=== PATIENT | female | born 1960 | race Caucasian/White ===

== ENCOUNTER 2016-04-12 23:16 | Inpatient (IN) | payer MEDICARE, MEDICAID ==
[2016-04-13 00:14] LABS: INR 1.13
[2016-04-13 00:23] LABS: ALB/GLOB RATIO 1.3 (>1.0); ALBUMIN 3.3 gm/dL (3.5-5.7); CALCIUM 8.5 mg/dL (8.6-10.3)
[2016-04-13 00:24] LABS: ABSOLUTE NEUTROPHIL COUNT 6.2 K/mm3 (1.8-7.7); BASO % 0.3 % (0.2-1.0); EOS # 0.1 (0.0-0.5); EOS % 0.7 % (0.9-2.9); HEMATOCRIT 33.6 % (37.0-47.0); HEMOGLOBIN 10.4 gm/l (12.0-16.0); IMM NEUT # 0.1 K/mm3 (0-0.2); IMM NEUT% 0.7 % (0-1); LYMPH # 0.4 (1.0-4.8); LYMPH % 5.8 % (15-45); MEAN CELL VOLUME 84.8 fl (81.0-99.0); MEAN CORPUSCULAR HEMOGLOBIN 26.3 pg (27.0-31.0); MONO # 0.7 (0.0-0.8); MONO % 9.1 % (4-12); NEUT % 83.4 % (43-75); RED CELL DISTRIBUTION WIDTH 16.8 % (11.5-14.5)
[2016-04-13] MEDS ORDERED: LACTATED RINGERS 1,000 ML ONE ×2 (00:35→03:30)
[2016-04-13 00:37] LABS: PLATELET COUNT 36 K/mm3 (130-400); PLATELET ESTIMATE DECREASED (NORMAL)
[2016-04-13 01:46] LABS: PH,URINE 6.5 (5.0-8.0); SPECIFIC GRAVITY 1.015 (1.001-1.030); URINE APPEARANCE SL CLOUDY; URINE BILIRUBIN NEGATIVE (NEGATIVE); URINE BLOOD NEGATIVE (NEGATIVE); URINE COLOR YELLOW; URINE GLUCOSE (UA) NEGATIVE (NEGATIVE); URINE LEUKOCYTE ESTERASE TRACE (NEGATIVE); URINE NITRITE NEGATIVE (NEGATIVE); URINE PROTEIN NEGATIVE (NEGATIVE); URINE UROBILINOGEN 8 mg/dL (0-1 mg/dl)
[2016-04-13 01:55] LABS: URINE BACTERIA 1+; URINE RBC 0-1 /hpf; URINE WBC 0-1 /hpf
[2016-04-13 01:58] LABS: AMPHETAMINES/METHAMPHETAMINES NEGATIVE (NEGATIVE); COCAINE NEGATIVE (NEGATIVE); MARIJUANA NEGATIVE (NEGATIVE); METHADONE NEGATIVE (NEGATIVE); OPIATES NEGATIVE (NEGATIVE); TRICYCLIC ANTIDEPRESSANTS NEGATIVE (NEGATIVE)
[2016-04-13] MEDS ORDERED: BLISTEX LIPSTICK 1 EACH TP PRN (03:17)
[2016-04-13] MEDS ORDERED: SODIUM CHLORIDE 0.9% 100 ML IV PRN (03:17)
[2016-04-13] MEDS ORDERED: MENTHOL/CETYLPYRD 1 EACH LOZENGE PO PRN (03:17)
[2016-04-13] MEDS ORDERED: BISACODYL 10 MG SUP PR PRN (03:17)
[2016-04-13] MEDS ORDERED: BISACODYL 5 MG TABLET.EC PO PRN (03:17)
[2016-04-13] MEDS ORDERED: MAGNESIUM HYDROXIDE 30 ML UDCUP PO PRN (03:17)
[2016-04-13] MEDS ORDERED: ALBUTEROL NEB 2.5 MG/3 ML VIAL.NEB NEB PRN (03:20)
[2016-04-13] MEDS ORDERED: HYDROMORPHONE HCL 1 MG/ML SYRINGE IV PRN (03:20)
[2016-04-13] MEDS ORDERED: ONDANSETRON 4 MG/2ML 2 ML VIAL IV PRN (03:20)
[2016-04-13] MEDS ORDERED: OXYCODONE HCL 5 MG TABLET ONE (03:23)
[2016-04-13] MEDS ORDERED: CEFTRIAXONE 1 GRAM DUPLEX 50 ML IV ONE (03:28)
[2016-04-13] MEDS ORDERED: AZITHROMYCIN 500 MG VIAL ONE (03:35)
[2016-04-13] MEDS ORDERED: SODIUM CHLORIDE 0.9% 250 ML IV ONE (03:36)
[2016-04-13 04:54] VITALS: BMI 22.3
[2016-04-13] MEDS ORDERED: PUMP TUBING ONE (05:12)
[2016-04-13] MEDS: SODIUM CHLORIDE 0.9% 1,000 ML IV SCH ×2 (05:22→15:19)
[2016-04-13] MEDS: PANTOPRAZOLE SODIUM 40 MG VIAL IV SCH (05:22)
--- NOTE | 2016-04-13 08:18 | CT ---
HEAD W/O CON History: Ground level fall. Comparison: None. Procedure: 1 mm axial images were obtained through the head from the vertex to the base of the skull without intravenous contrast. Stacked reconstructed 5 mm images were then obtained in the axial, coronal and sagittal planes. Findings: The lateral ventricles, cerebral sulci and sylvian fissures are of normal size. No evidence of midline shift is seen. No mass or mass effect is identified. No evidence of intra or extra-axial fluid collections or hemorrhage is seen. The castorena-white differentiation is relatively well-preserved. The basilar cisterns are uneffaced. The posterior fossa structures are unremarkable. There is a prominent left frontal parietal scalp hematoma. The underlying calvarium appears to be intact. Near-complete opacification is noted of the visualized frontal, ethmoid and maxillary sinuses. Impression: 1. No findings of acute intracranial hemorrhage. 2. A prominent left frontal parietal scalp hematoma. 3. Extensive pansinus disease. The findings were called to the emergency room at 0114 hours, 04/13/2016, by [facility].
[2016-04-13] MEDS ORDERED: HYDROMORPHONE HCL 2 MG/ML SYRINGE IV PRN (08:21)
--- NOTE | 2016-04-13 08:22 | RAD ---
History: Dyspnea. Comparison: None. Technique: 2 views Findings: There are multiple mid thoracic compression deformities with at least 3 vertebroplasties identified with a resultant kyphotic deformity. The hardware fixation of the upper lumbar and lower thoracic spine is also observed. There are multiple left posterior lateral rib fractures identified of unknown chronicity. Heart size is normal for technique. No definite effusion or pneumothorax is seen. The hilar and mediastinal structures are grossly intact. Postsurgical changes are also noted of the proximal left humerus. Impression: 1. Multiple adjacent mid thoracic compression deformities with at least 3 adjacent vertebroplasties with a resultant kyphotic deformity. 2. Multiple left posterior lateral adjacent rib fractures of unknown chronicity. 3. No effusion or pneumothorax visualized. 4. Extensive postsurgical changes of the proximal left humerus and the lower thoracic/upper lumbar spine.
[2016-04-13 08:51] LABS: BASO % 0.2 % (0.2-1.0); HEMATOCRIT 29.5 % (37.0-47.0); IMM NEUT% 0.7 % (0-1); LYMPH # 0.4 (1.0-4.8); LYMPH % 9.5 % (15-45); MEAN CELL VOLUME 87.5 fl (81.0-99.0); MEAN CORPUSCULAR HEMOGLOBIN 26.7 pg (27.0-31.0); MEAN CORPUSCULAR HGB CONC 30.5 g/dl (33.0-37.0); MONO # 0.5 (0.0-0.8); MONO % 13.4 % (4-12); NEUT % 75.2 % (43-75); PLATELET COUNT 33 K/mm3 (130-400)
[2016-04-13] MEDS ORDERED: FLU VACC 2016-17 (36MO-64Y)/PF 60 MCG/0.5 ML SYRINGE IM V ONE (09:00)
[2016-04-13] MEDS ORDERED: PNEUMOCOCCAL 23-VAL P-SAC VAC 0.5 ML VIAL IM V ONE (09:00)
--- NOTE | 2016-04-13 09:06 | RAD ---
SHOULDER-LEFT 2 OR MORE VIEWS COMPARISON: None HISTORY: Left shoulder pain after a fall. Initial encounter. FINDINGS: Views: Left shoulder external rotation, internal rotation, and scapula Y Bones: No acute fracture. Intact hardware in the proximal humerus for repair of prior fracture. Normal scapula and clavicle. Old fractures of multiple left ribs. Scoliosis and treated compression fractures in the upper and mid thoracic spine. Joints: Normal glenohumeral and acromioclavicular joints. Soft tissues: Normal IMPRESSION: 1. No acute fracture. 2. Healed fracture of the proximal left humerus with intact internal fixation hardware. 3. Multiple old fracture deformities of the left ribs. There are 3 thoracic compression fractures that were treated with cement injection.
--- NOTE | 2016-04-13 09:08 | RAD ---
SHOULDER-RIGHT 2 OR MORE VIEWS COMPARISON: None. HISTORY: Right shoulder pain after a fall. Initial encounter. FINDINGS: Views: Right shoulder internal rotation, external rotation, and scapular Y Bones: No fracture bone distraction of the proximal right humerus, right clavicle, or right 6 scapula. Old rib fracture deformities on the right. There are 3 vertebral body fractures treated with cement injection. Partially seen is spinal instrumentation in the lower thoracic spine. Joints: Severe narrowing and osteophytes at the glenohumeral joint. Normal acromioclavicular joint. Soft tissues: Surgical clips in the right chest wall. IMPRESSION: 1. No acute fracture. 2. Severe osteoarthritis of the right glenohumeral joint. 3. Incidental findings include multiple old right rib fractures, surgical clips in the right axilla compatible with treatment for breast cancer, and 3 old thoracic vertebral fractures treated with cement injection.
[2016-04-13 09:11] LABS: ALB/GLOB RATIO 1.2 (>1.0); ALBUMIN 2.7 gm/dL (3.5-5.7); CALCIUM 7.8 mg/dL (8.6-10.3)
--- NOTE | 2016-04-13 09:16 | HP ---
Susan Markham ADMIT DATE: 04/13/2016 CHIEF COMPLAINT: Weakness. HISTORY: Susan is a 55-year-old female with known underlying alcoholic Cirrhosis with varices and what appears to be possibly a chronic low grade hepatic encephalopathy. She has never been seen in our facility before and we have no records available and she is unable to provide much of a history. Apparently she lives alone with a caregiver. On the late evening hours of 04/12/2016, caregivers called emergency medical service due to weakness and a fall. She apparently fell and hit her head. By report, she falls frequently. Emergency medical service indicates that they are called frequently to her residence for falls, weakness, and other psychosocial issues as well. This time she was weak enough that family and caregivers convinced her to convinced her to come to the emergency room which she did. In the emergency room, she was worked up and found to have a concern for a possible community acquired pneumonia on chest x-ray, though she really had no pulmonary symptoms. She was profoundly weak and lethargic, was unable to get much of a history. Again, it is unclear what her baseline is, but given the questions, lack of history, and what appeared to be altered mental status it was elected to admit her to the hospitalist service for treatment of presumed community acquired pneumonia and further workup. REVIEW OF SYSTEMS: The patient has trouble answering questions. She seems at times lethargic and at times awake. There does seem to be a behavioral component to her mental status. Review of systems is therefore felt to be incomplete, but she does not complain of any headache or visual symptoms. No difficulty swallowing. No new chest pain or shortness of breath. No cough. No recent fever or chills. No nausea or vomiting. She does have chronic loose stools. Her main complaint is that she is "just more tired." PAST MEDICAL HISTORY: 1. Alcoholism in remission. In the chart it indicates that she has discontinued drinking alcohol several years ago. 2. Alcoholic Cirrhosis with history of varices and a history of hepatic encephalopathy. Further details of these are unable. 3. Chronic low blood pressure with baseline of 80 or 60 being normal. 4. Chronic pain both back and bilateral shoulders. 5. Depression. 6. Multiple other psychosocial issues, not otherwise specified. 7. History of frequent falls. 8. Left humerus fracture January 2015, status post open reduction internal fixation. 9. History of breast cancer. Further details unavailable. 10. Chronic anemia. PAST SURGICAL HISTORY: 1. Left humerus open reduction internal fixation January 2015. 2. Cholecystectomy. 3. Some kind of back surgery in the distant past. ALLERGIES: DULOXETINE. CURRENT MEDICATIONS: Unknown. Patient is unable to answer. SOCIAL HISTORY: She apparently lives alone with some form of caregiver help. Apparently stopped drinking alcohol several years ago. Further details unavailable. FAMILY HISTORY: Unknown. OBJECTIVE: VITAL SIGNS: Temperature 98.5, pulse 90 and regular, blood pressure 94/62, respirations 18, O2 sat 94% on 2 liters. GENERAL: This is a thin cachectic pale female. She appears much older than her stated age. She answers questions though is lethargic with slurred speech. Does not open her eyes consistently. She does intermittently open her eyes and speak clearly depending on the question asked and the nature of the conversation, but then will roll over and seem uninterested in continuing the conversation. HEENT: She has bruising over the left eye and on the left forehead. Extraocular movements are intact. Sclerae are anicteric. Oropharynx: Mucosa is dry with no lesions. NECK: Supple with no jugular venous distention. LUNGS: Distant sounds. No wheezes, rales, or rhonchi noted. HEART: Regular rate and rhythm. ABDOMEN: Soft. There is no organomegaly. Bowel tones are positive. EXTREMITIES: There is no edema. LABORATORY: CBC with a white count of 7.4, hemoglobin 10.4, hematocrit 33.6, platelets of 36. Chemistry panel, sodium 136, potassium 3.8, chloride 99, carbon dioxide 27, BUN of 18, creatinine 0.8, glucose of 102, total bilirubin is elevated at 3.0, AST 75, ALT 42, alk phos 82. Ammonia level is normal at 66, troponin normal less than 0.01, lipase of 13. Lactate is normal at 0.9. INR is slightly elevated at 1.13. Urine drug screen is negative. Alcohol level is 0. DIAGNOSTICS: Head CT shows no acute findings. She does have a left frontal scalp hematoma. She does have bilateral opacification of her sinuses noted incidentally. Chest x-ray showing multiple old thoracic compression fractures with evidence of a prior vertebroplasties, old left sided rib fracture is noted, postsurgical changes to the left humerus and upper lumbar spine noted. No obvious infiltrate however. ASSESSMENT: 1. Weakness, acute on chronic, again unclear what her baseline is and there was an initial concern for possible community acquired pneumonia, however, the chest x-ray does not appear to show this and she does not have any pulmonary symptoms. Blood cultures have been drawn. We will continue antibiotics for now until we get further clarification on what her baseline is. 2. Altered mental status, unclear if this is again baseline or if she has an exacerbation of an underlying low grade chronic hepatic encephalopathy. We will have physical therapy and occupational therapy evaluate her. Will attempt to get records once we find out who her regular physician is. It is unclear if she has been in any other facilities recently and will attempt to find this out in the morning as well. 3. Underlying alcoholic Cirrhosis. The minimal records we have indicate she has a varices and hepatic encephalopathy and this appears to be at baseline with the exception of the questionable exacerbation of encephalopathy as noted above. PLAN: Supportive care. We will try to minimize sedative hypnotic medications and will complete her workup by checking an arterial blood gas and a repeat ammonia level. Supportive care otherwise with gentle IV fluid rehydration. We will attempt to get records as noted above. Given her history of varices and her slightly elevated INR I am going to hold off on pharmacologic deep venous thrombosis prophylaxis at this point. Further care is dictated by clinical course. JOB: [id number]
--- NOTE | 2016-04-13 10:09 | PDOC36 ---
Provider Note Subject: Home Meds Note: Received Clinic Records from 12/08/15- most recent visit apparently. Home meds entered into EMR based on this note, but still unclear if this is actually an accurate list. Pharmacy to inquire further.
[2016-04-13] MEDS: HYDROMORPHONE HCL 1 MG/ML SYRINGE IV PRN ×4 (10:55→19:46)
[2016-04-13] MEDS ORDERED: GABAPENTIN 600 MG TABLET ONE (16:41)
[2016-04-13] MEDS: GABAPENTIN 600 MG TABLET PO SCH ×2 (16:42→20:03)
[2016-04-13] MEDS ORDERED: VISCOUS PO PRN (17:17)
[2016-04-13] MEDS ORDERED: LIDOCAINE 2% PO PRN (17:17)
[2016-04-13] MEDS: LIDOCAINE Viscous 2% 15 ML UDCUP PO PRN (17:49)
[2016-04-13] MEDS: [UNRECOGNIZED DRUG - OTHER] SL SCH ×2 (18:14→23:12)
[2016-04-13] MEDS: LACTULOSE 20 G/30 ML UDCUP PO SCH ×2 (20:02→22:59)
[2016-04-13] MEDS: TRAZODONE HCL 50 MG TABLET PO SCH (20:03)
[2016-04-13] MEDS: PROPRANOLOL HCL 60 MG PO SCH (22:41)
[2016-04-14] MEDS: PANTOPRAZOLE SODIUM 40 MG VIAL IV SCH (03:09)
[2016-04-14] MEDS: CEFTRIAXONE 1 GRAM DUPLEX 1 G in Premix (D5W) 50 ml 1 EACH IV SCH (03:09)
[2016-04-14] MEDS: SODIUM CHLORIDE 0.9% 1,000 ML IV SCH ×2 (03:10→10:15)
[2016-04-14] MEDS: HYDROMORPHONE HCL 1 MG/ML SYRINGE IV PRN ×3 (03:16→10:08)
[2016-04-14] MEDS ORDERED: AZITHROMYCIN IV SCH (03:30)
[2016-04-14] MEDS ORDERED: SODIUM CHLORIDE NS ADD VANTAGE IV SCH (03:30)
[2016-04-14 07:08] LABS: HEMATOCRIT 32.9 % (37.0-47.0); HEMOGLOBIN 9.7 gm/l (12.0-16.0); MEAN CELL VOLUME 90.9 fl (81.0-99.0); MEAN CORPUSCULAR HEMOGLOBIN 26.8 pg (27.0-31.0); MEAN CORPUSCULAR HGB CONC 29.5 g/dl (33.0-37.0); RED CELL DISTRIBUTION WIDTH 17.2 % (11.5-14.5)
[2016-04-14 07:22] LABS: INR 1.13
[2016-04-14 07:33] LABS: ALB/GLOB RATIO 1.1 (>1.0); ALBUMIN 2.7 gm/dL (3.5-5.7); CALCIUM 7.9 mg/dL (8.6-10.3)
[2016-04-14] MEDS: SERTRALINE HCL 50 MG TABLET PO SCH (08:49)
[2016-04-14] MEDS: GABAPENTIN 600 MG TABLET PO SCH ×4 (08:50→20:48)
[2016-04-14] MEDS: [UNRECOGNIZED DRUG - OTHER] SL SCH (08:51)
[2016-04-14] MEDS: LACTULOSE 20 G/30 ML UDCUP PO SCH ×4 (08:51→23:08)
[2016-04-14] MEDS ORDERED: FUROSEMIDE 20 MG TABLET PO SCH (09:00)
[2016-04-14] MEDS: LIDOCAINE Viscous 2% 15 ML UDCUP PO PRN ×3 (09:01→20:47)
--- NOTE | 2016-04-14 11:28 | PDOC43 ---
- Subjective Chief Complaint: Weakness, confusion Subjective: Reports Pain Tolerable, Reports Tolerating Diet Well, Denies Fever - Objective Vital Signs Temperature 97.9 F 04/14/16 08:02 Pulse Rate 84 04/14/16 08:02 Respiratory Rate 16 04/14/16 08:02 Blood Pressure 101/64 04/14/16 08:02 O2 Saturation by Pulse Oximetry 90 04/14/16 08:02 Oxygen Delivery Method Nasal Cannula Oxygen Flow Rate 2 Intake and Output 04/13/16 04/14/16 04/15/16 06:59 06:59 06:59 Intake Total 341 1126 Output Total 976 Balance 341 150 General: Alert, Cooperative, No Acute Distress HEENT: Mucous membr. moist/pink Lungs: Clear to Auscultation Bilaterally Cardiovascular: Regular Rate and Rhythm Abdomen: Soft, Normal Bowel Sounds, Mild Distention, Other (mild ascites), No Tenderness Extremities: No Edema Skin: Warm, Dry, Intact, Other (extensive bruising over left face and countless bruises on ext.) Neurological: Normal Speech Laboratory 04/14/16 06:00 04/14/16 06:00 04/14/16 06:00 RBC 3.62 L MCH 26.8 L MCHC 29.5 L RDW 17.2 H PT 12.0 H Estimated GFR 128 H Calcium 7.9 L Total Bilirubin 1.8 H AST 60 H Total Protein 5.2 L Albumin 2.7 L Current Medications: Current meds reviewed in EMR. - Problems: Assessment/Plan (1) Weakness Status: Acute Assessment/Plan: Multifactorial, associated with chronic, low grade hepatic encephalopathy, hypoxia and UTI-improving, but 2 person assist and was indep at baseline (2) Bacterial UTI Status: Acute Assessment/Plan: due to Klebsiella pneumonia sens to Rocephin-[facility] (3) Hypoxia Status: Acute Assessment/Plan: unclear etiology, initially treated with rocephin and zithromax for suspect bact. pneumonia but initial CXR was negative-repeat CXR (4) Cirrhosis with alcoholism Qualifiers: Ascites presence: with ascites Qualifier Code: (K70.31) Alcoholic cirrhosis of liver with ascites Status: Acute Assessment/Plan: patient initially denied current alcohol use but info from social research assistant indicates that she is still drinking occasionally, elevated AST suspicious for ongoing alcohol abuse. On chronic meds for portal hypertension and hepatic encephalopathy(lactulose and Rifaximin), ammonia level is wnl (5) Rheumatoid arthritis Qualifiers: Rheumatoid arthritis location: unspecified site Rheumatoid factor presence: unspecified presence Qualifier Code: (M06.9) Rheumatoid arthritis , unspecified Status: Chronic Assessment/Plan: On Orencia and suboxone for chronic pain (6) Osteoporosis Status: Chronic Assessment/Plan: encourage use of vit D and calcium (7) Depression Qualifiers: Depression Type: unspecified Qualifier Code: (F32.9) Major depressive disorder, single episode, unspecified Status: Chronic Assessment/Plan: cont Zoloft (8) Thrombocytopenia Status: Chronic Assessment/Plan: probably due to cirrhosis but a possible side effect of Lasix-switch to Bumex (9) Anemia Qualifiers: Anemia type: unspecified type Qualifier Code: (D64.9) Anemia, unspecified Status: Acute Assessment/Plan: chronic, macrocytic, may be due to chronic disease, is on chronic iron supplementation-check for nutritional deficiencies (10) Hypokalemia Status: Acute Assessment/Plan: possibly from IVF and diuretics-replace and check magnesium VTE Prophylaxis: [facility] measures Disposition: home in 1-2 days
--- NOTE | 2016-04-14 12:07 | RAD ---
Name: NICHOLAS BLAND Exam: Two-view chest Comparison: 04/13/2016 Clinical history: Hypoxia Findings: 2 views the chest are submitted heart is nonenlarged. Mediastinum and hilar structures are normal. Impression: No acute cardiopulmonary process persistent infiltrate is noted in the right mid and lower lung zones with interval improvement. There is no pleural effusion or pneumothorax. Old left rib fractures are identified. There is been prior extensive surgery spanning the thoracic lumbar junction. Levoscoliosis of the mid upper thoracic spine is unchanged and there is been prior vertebroplasty's at these levels. There is been prior extensive left humeral surgery as well. Surgical clips are noted within the right breast. IMPRESSION: 1. Persistent mild infiltrate in the right lung with interval improvement 2. Multiple prior extensive surgeries.
[2016-04-14] MEDS ORDERED: Magnesium Oxide 400 MG TABLET PO SCH (13:15)
[2016-04-14] MEDS: BUPRENORPHINE/NALOXONE 8MG/2MG 1 EACH FILM SL SCH ×4 (13:33→21:14)
[2016-04-14] MEDS: POTASSIUM CHLORIDE 20 MEQ TAB.PRT.SR PO SCH ×2 (13:33→16:41)
[2016-04-14] MEDS: INDOMETHACIN 25 MG CAPSULE PO SCH ×3 (13:33→20:49)
[2016-04-14] MEDS: CALCIUM CARBONATE 600 MG/VITAMIN D3 400 UNIT/TABLET PO SCH ×2 (14:27→20:48)
[2016-04-14] MEDS: VITAMIN B COMPLEX W/B-12 1 EACH TABLET PO SCH (14:27)
[2016-04-14] MEDS ORDERED: POTASSIUM CHLORIDE 20 MEQ TAB.PRT.SR ONE (16:39)
[2016-04-14] MEDS: Magnesium Oxide 400 MG TABLET PO SCH ×2 (20:48→23:08)
[2016-04-14] MEDS: TRAZODONE HCL 50 MG TABLET PO SCH (20:48)
[2016-04-14] MEDS: PROPRANOLOL HCL 60 MG PO SCH ×2 (20:58→21:14)
[2016-04-15] MEDS ORDERED: PUMP TUBING ONE (03:19)
[2016-04-15] MEDS: CEFTRIAXONE 1 GRAM DUPLEX 1 G in Premix (D5W) 50 ml 1 EACH IV SCH (03:30)
[2016-04-15] MEDS ORDERED: AZITHROMYCIN 500 MG in SODIUM CHLORIDE 0.9% 250 ML IV SCH (03:30)
[2016-04-15] MEDS: PANTOPRAZOLE SODIUM 40 MG VIAL IV SCH (04:49)
[2016-04-15] MEDS: BUPRENORPHINE/NALOXONE 8MG/2MG 1 EACH FILM SL SCH ×4 (04:50→17:51)
[2016-04-15 06:53] LABS: ALB/GLOB RATIO 1.1 (>1.0); ALBUMIN 2.6 gm/dL (3.5-5.7); CALCIUM 7.5 mg/dL (8.6-10.3)
[2016-04-15 07:05] LABS: ABSOLUTE NEUTROPHIL COUNT 2.5 K/mm3 (1.8-7.7); BASO % 0.3 % (0.2-1.0); EOS # 0.1 (0.0-0.5); EOS % 2.8 % (0.9-2.9); HEMATOCRIT 28.5 % (37.0-47.0); HEMOGLOBIN 8.5 gm/l (12.0-16.0); IMM NEUT% 0.6 % (0-1); LYMPH # 0.3 (1.0-4.8); LYMPH % 8.9 % (15-45); MEAN CELL VOLUME 88.8 fl (81.0-99.0); MEAN CORPUSCULAR HEMOGLOBIN 26.5 pg (27.0-31.0); MEAN CORPUSCULAR HGB CONC 29.8 g/dl (33.0-37.0); MEAN PLATELET VOLUME 12.3 fl (7.4-10.4); MONO # 0.3 (0.0-0.8); MONO % 9.8 % (4-12); NEUT % 77.6 % (43-75); PLATELET COUNT 26 K/mm3 (130-400); RED CELL DISTRIBUTION WIDTH 16.6 % (11.5-14.5)
[2016-04-15 07:06] LABS: PLATELET ESTIMATE DECREASED (NORMAL)
[2016-04-15 07:07] LABS: ANISOCYTOSIS 2+
[2016-04-15] MEDS: Magnesium Oxide 400 MG TABLET PO SCH (07:54)
[2016-04-15] MEDS: POTASSIUM CHLORIDE 20 MEQ TAB.PRT.SR PO SCH ×3 (08:17→12:46)
[2016-04-15] MEDS: LIDOCAINE Viscous 2% 15 ML UDCUP PO PRN ×3 (09:10→18:45)
[2016-04-15] MEDS: CALCIUM CARBONATE 600 MG/VITAMIN D3 400 UNIT/TABLET PO SCH ×2 (09:44→21:21)
[2016-04-15] MEDS: SERTRALINE HCL 50 MG TABLET PO SCH (09:44)
[2016-04-15] MEDS: SPIRONOLACTONE 100 MG TABLET PO SCH (09:44)
[2016-04-15] MEDS: INDOMETHACIN 25 MG CAPSULE PO SCH ×3 (09:45→21:23)
[2016-04-15] MEDS: BUMETANIDE 1 MG TABLET PO SCH (09:46)
[2016-04-15] MEDS: LACTULOSE 20 G/30 ML UDCUP PO SCH ×4 (09:47→22:42)
[2016-04-15] MEDS: VITAMIN B COMPLEX W/B-12 1 EACH TABLET PO SCH (09:52)
[2016-04-15] MEDS: GABAPENTIN 600 MG TABLET PO SCH ×4 (09:57→21:23)
--- NOTE | 2016-04-15 10:24 | PDOC43 ---
- Subjective Chief Complaint: Weakness, confusion Subjective: Reports Pain Tolerable, Reports Shortness of Breath (with activity) , Denies Fever - Objective Vital Signs Temperature 97.4 F 04/15/16 08:09 Pulse Rate 68 04/15/16 08:09 Respiratory Rate 18 04/15/16 08:09 Blood Pressure 102/70 04/15/16 08:09 O2 Saturation by Pulse Oximetry 95 04/15/16 08:09 Oxygen Delivery Method Room Air Oxygen Flow Rate 0 Intake and Output 04/14/16 04/15/16 04/16/16 06:59 06:59 06:59 Intake Total 1126 2280 Output Total 976 1880 Balance 150 400 General: Alert, Oriented x3, Cooperative, Mild Distress HEENT: Mucous membr. moist/pink Lungs: Diminished at Bases (occ wheezes) Cardiovascular: Regular Rate and Rhythm Abdomen: Soft, Normal Bowel Sounds, Non-Distended, No Tenderness Extremities: No Edema Laboratory 04/15/16 05:30 04/15/16 05:30 04/15/16 04/14/16 05:30 06:00 RBC 3.21 L MCH 26.5 L MCHC 29.8 L RDW 16.6 H Estimated GFR 104 H Calcium 7.5 L Magnesium 1.4 L Total Bilirubin 1.6 H AST 60 H Total Protein 4.9 L Albumin 2.6 L Current Medications: Current meds reviewed in EMR. - Problems: Assessment/Plan (1) Weakness Status: Acute Assessment/Plan: Multifactorial, associated with chronic, low grade hepatic encephalopathy, hypoxia and UTI-improving, should be able to manage at home (2) Bacterial UTI Status: Acute Assessment/Plan: due to Klebsiella pneumonia sens to Rocephin-[facility] (3) Hypoxia Status: Acute Assessment/Plan: due to bact pneumonia, treated with rocephin and zithromax, wean oxygen as tolerated-may need home oxygen if still hypoxic in am (4) Cirrhosis with alcoholism Qualifiers: Ascites presence: with ascites Qualifier Code: (K70.31) Alcoholic cirrhosis of liver with ascites Status: Acute Assessment/Plan: patient initially denied current alcohol use but info from manager social work indicates that she is still drinking occasionally, elevated AST suspicious for ongoing alcohol abuse. On chronic meds for portal hypertension and hepatic encephalopathy(lactulose and Rifaximin), ammonia level is wnl (5) Rheumatoid arthritis Qualifiers: Rheumatoid arthritis location: unspecified site Rheumatoid factor presence: unspecified presence Qualifier Code: (M06.9) Rheumatoid arthritis , unspecified Status: Chronic Assessment/Plan: On Orencia and suboxone for chronic pain (6) Osteoporosis Status: Chronic Assessment/Plan: encourage use of vit D and calcium (7) Depression Qualifiers: Depression Type: unspecified Qualifier Code: (F32.9) Major depressive disorder, single episode, unspecified Status: Chronic Assessment/Plan: cont Zoloft (8) Thrombocytopenia Status: Chronic Assessment/Plan: probably due to cirrhosis but a possible side effect of Lasix-switched to Bumex (9) Anemia Qualifiers: Anemia type: unspecified type Qualifier Code: (D64.9) Anemia, unspecified Status: Acute Assessment/Plan: chronic, macrocytic, may be due to chronic disease, is on chronic iron supplementation, also component of acute blood loss from extensive bruising- checking for nutritional deficiencies (10) Hypokalemia Status: Acute Assessment/Plan: possibly from IVF and diuretics-replace (11) Bacterial pneumonia Status: Acute Assessment/Plan: present on admit, on rocephin and zithromax-[employer] (12) Hypomagnesemia Status: Acute Assessment/Plan: replacing VTE Prophylaxis: [facility] measures Disposition: home in 1-2 days, may need home oxygen
[2016-04-15] MEDS: TRAZODONE HCL 50 MG TABLET PO SCH (21:21)
[2016-04-15] MEDS: PROPRANOLOL HCL 60 MG PO SCH (21:24)
[2016-04-16] MEDS: Magnesium Oxide 400 MG TABLET PO SCH ×2 (00:31→08:27)
[2016-04-16] MEDS: BUPRENORPHINE/NALOXONE 8MG/2MG 1 EACH FILM SL SCH ×2 (00:32→09:42)
[2016-04-16] MEDS: CEFTRIAXONE 1 GRAM DUPLEX 1 G in Premix (D5W) 50 ml 1 EACH IV SCH (04:17)
[2016-04-16] MEDS: PANTOPRAZOLE SODIUM 40 MG VIAL IV SCH (04:20)
[2016-04-16 05:25] LABS: IRON 25 ug/dL (50-212); TOTAL IRON BINDING CAPACITY 351 ug/dL (261-478); TRANSFERRIN 251 mg/dL (203-362)
[2016-04-16 06:11] LABS: BASO % 0.3 % (0.2-1.0); EOS # 0.1 (0.0-0.5); EOS % 1.7 % (0.9-2.9); HEMATOCRIT 29.5 % (37.0-47.0); HEMOGLOBIN 8.8 gm/l (12.0-16.0); IMM NEUT% 0.6 % (0-1); LYMPH # 0.3 (1.0-4.8); LYMPH % 7.2 % (15-45); MEAN CELL VOLUME 88.6 fl (81.0-99.0); MEAN CORPUSCULAR HEMOGLOBIN 26.4 pg (27.0-31.0); MEAN CORPUSCULAR HGB CONC 29.8 g/dl (33.0-37.0); MONO # 0.2 (0.0-0.8); MONO % 6.4 % (4-12); NEUT % 83.8 % (43-75); RED CELL DISTRIBUTION WIDTH 16.8 % (11.5-14.5)
[2016-04-16 06:32] LABS: FERRITIN 81.4 ng/mL (11.0-306.8)
[2016-04-16 06:34] LABS: CALCIUM 9.4 mg/dL (8.6-10.3); MAGNESIUM 1.6 mg/dL (1.9-2.7)
[2016-04-16 06:35] LABS: FOLIC ACID > 23.7 ng/mL (>5.9)
[2016-04-16 07:36] LABS: MEAN PLATELET VOLUME 9.9 fl (7.4-10.4); PLATELET COUNT 32 K/mm3 (130-400)
[2016-04-16] MEDS: INDOMETHACIN 25 MG CAPSULE PO SCH (08:25)
[2016-04-16] MEDS: SPIRONOLACTONE 100 MG TABLET PO SCH (08:25)
[2016-04-16] MEDS: BUMETANIDE 1 MG TABLET PO SCH (08:27)
[2016-04-16] MEDS: VITAMIN B COMPLEX W/B-12 1 EACH TABLET PO SCH (08:28)
[2016-04-16] MEDS: SERTRALINE HCL 50 MG TABLET PO SCH (08:29)
[2016-04-16] MEDS: LACTULOSE 20 G/30 ML UDCUP PO SCH ×2 (08:31→09:47)
[2016-04-16] MEDS: CALCIUM CARBONATE 600 MG/VITAMIN D3 400 UNIT/TABLET PO SCH (09:52)
[2016-04-16] MEDS: LIDOCAINE Viscous 2% 15 ML UDCUP PO PRN (09:53)
[2016-04-16] MEDS ORDERED: IRON SUCROSE COMPLEX 200 MG in SODIUM CHLORIDE 0.9% 100 ML IV ONE (11:52)
--- NOTE | 2016-04-16 11:52 | PDOC43 ---
- Subjective Chief Complaint: Weakness, confusion RN reports pt eager to go home. Hasn't been up with PT (DC'd on 04/13) OT had been refused previously. Reports some neck pains, for last several months. Eating ok. Breathing ok, doesn't care for O2. Reports a little difficulty with swallow, has been going on for a couple years. Subjective: Reports Pain Tolerable, Reports Tolerating Diet Well - Objective Vital Signs Temperature 97.8 F 04/16/16 07:53 Pulse Rate 71 04/16/16 07:53 Respiratory Rate 18 04/16/16 09:57 Blood Pressure 78/53 04/16/16 07:53 O2 Saturation by Pulse Oximetry 90 04/16/16 07:53 Oxygen Delivery Method Nasal Cannula Oxygen Flow Rate 1 Vital Signs Last 12 Hours Temp Pulse Resp BP Pulse Ox 04/16/16 09:57 18 04/16/16 07:53 97.8 F 71 18 78/53 90 04/16/16 04:00 97.6 F 75 20 96/55 90 04/16/16 03:45 18 04/16/16 00:42 97.5 F 62 20 99/66 94 Intake and Output 04/14/16 04/15/16 04/16/16 23:59 23:59 23:59 Intake Total 895 2360 1229 Output Total 1831 950 150 Balance -936 1410 1079 General: Alert, Other (sl talkative demeanor, pleasant.) Lungs: Clear to Auscultation Bilaterally, Normal Air Movement Cardiovascular: Regular Rate and Rhythm Abdomen: Hyperactive Bowel Sounds (increased, sl metallic bowel sounds, but not tender.), Distention, No Tenderness Extremities: Other (scattered bruises on arms, legs.), No Edema Skin: Other (large bruising on L forehead, and around eyes.) Psych/Mental Status: Other (sl talkative, poss sl reduced inhibitions.) Laboratory 04/16/16 05:30 04/16/16 05:30 04/16/16 04/14/16 05:30 07:05 RBC 3.33 L MCH 26.4 L MCHC 29.8 L RDW 16.8 H Anion Gap 4 L Magnesium 1.6 L Iron 25 L Transferrin % Sat 7 L Vitamin B12 > 1500 H Current Medications: Current meds reviewed in EMR. Active Medications Albuterol Sulfate (Ventolin Inhalation Solution (Dose)) 2.5 mg NEB Q2H PRN PRN Reason: Wheezing Last Admin: 04/15/16 19:53 Dose: 2.5 mg Benzocaine/Menthol (Cepacol) 1 each PO PRN PRN PRN Reason: Sore Throat Bisacodyl (Dulcolax) 10 mg HI DAILY PRN PRN Reason: Constipation Bisacodyl (Dulcolax) 5 mg PO DAILY PRN PRN Reason: Constipation Bumetanide (Bumex) 1.5 mg PO DAILY [facility] Last Admin: 04/16/16 08:27 Dose: 1.5 mg Buprenorphine HCl (Suboxone 8 Mg-2 Mg Sl Film) 1 each SL Q6HR [facility] Last Admin: 04/16/16 09:42 Dose: 1 each Calcium Carbonate (Calcium Carbonate/Vitamin D3) 1 each PO BID [facility] Last Admin: 04/16/16 09:52 Dose: 1 each Gabapentin (Neurontin) 600 mg PO QID [facility] Last Admin: 04/15/16 21:23 Dose: 600 mg Ceftriaxone Sodium/Dextrose 1 (g/ Premix (D5W) 50 ml) 50 mls @ 100 mls/hr IV Q24H [facility] Last Admin: 04/16/16 04:17 Dose: 100 mls/hr Sodium Chloride (Sodium Chloride 0.9%) 100 mls @ 25 mls/hr IV PRN PRN PRN Reason: Flush Last Admin: 04/15/16 03:31 Dose: 25 mls/hr Indomethacin (Indocin) 25 mg PO TID [facility] Last Admin: 04/16/16 08:25 Dose: 25 mg Lactulose (Enulose) 10 g PO TID [facility] Last Admin: 04/16/16 09:47 Dose: Not Given Lidocaine HCl (Lidocaine 2% Viscous) 5 ml PO QID PRN PRN Reason: Pain Last Admin: 04/16/16 09:53 Dose: 5 ml Magnesium Hydroxide (Milk Of Magnesia) 30 ml PO DAILY PRN PRN Reason: Constipation Last Admin: 04/14/16 20:48 Dose: 30 ml Magnesium Oxide (Magnesium Oxide) 800 mg PO 0700,2300 [facility] Last Admin: 04/16/16 08:27 Dose: 800 mg Miscellaneous (Propranolol Hcl [Inderal La]) 60 mg PO BEDTIME [facility] Last Admin: 04/15/16 21:24 Dose: 60 mg Ondansetron HCl (Zofran) 4 mg IV Q3H PRN PRN Reason: Nausea/Vomiting Last Admin: 04/13/16 16:47 Dose: 4 mg Pantoprazole Sodium (Protonix) 40 mg IV Q24H [facility] Last Admin: 04/16/16 04:20 Dose: 40 mg Petrolatum/Paraffin/Mineral Oil (Blistex) 1 each TP PRN PRN PRN Reason: Dry and/or chapped lips Last Admin: 04/16/16 10:48 Dose: 1 applic Sertraline HCl (Zoloft) 150 mg PO DAILY [facility] Last Admin: 04/16/16 08:29 Dose: 150 mg Sodium Chloride (Normal Saline 10ml Flush) 10 - 50 ml IV PRN PRN PRN Reason: IV Flush Last Admin: 04/16/16 05:15 Dose: 10 ml Sodium Chloride (Normal Saline 10ml Flush) 10 ml IV Q8HR [facility] Last Admin: 04/16/16 08:29 Dose: 10 ml Spironolactone (Aldactone) 200 mg PO DAILY [facility] Last Admin: 04/16/16 08:25 Dose: 200 mg Trazodone HCl (Desyrel) 100 mg PO BEDTIME [facility] Last Admin: 04/15/16 21:21 Dose: 100 mg Vitamin B Complex (Vitamin B Complex W/B-12) 1 each PO DAILY [facility] Last Admin: 04/16/16 08:28 Dose: 1 each - Problems: Assessment/Plan (1) Bacterial UTI Status: Acute Assessment/Plan: due to Klebsiella pneumonia, sensitive to Rocephin, anticipate revision to PO cephalosporin (2) Bacterial pneumonia Status: Acute Assessment/Plan: present on admit, on rocephin and zithromax ; consider revision to just ceftin as outpt. (3) Anemia Qualifiers: Anemia type: unspecified type Qualifier Code: (D64.9) Anemia, unspecified Status: Acute Assessment/Plan: chronic, macrocytic, suspect combined iron deficiency (documented lower transferrin sat) and chronic disease, is on chronic iron supplementation, consider dose of Venofer. also component of acute blood loss from extensive bruising B12, folate not low. (4) Cirrhosis with alcoholism Qualifiers: Ascites presence: with ascites Qualifier Code: (K70.31) Alcoholic cirrhosis of liver with ascites Status: Acute Assessment/Plan: patient initially denied current alcohol use info from social services director indicates that she is still drinking occasionally, elevated AST suspicious for ongoing alcohol abuse. On chronic meds for portal hypertension and hepatic encephalopathy (lactulose and Rifaximin), ammonia level is wnl Noted to be hypotensive, consider revision of meds (5) Thrombocytopenia Status: Chronic Assessment/Plan: presumed due to cirrhosis; but could be a possible side effect of Lasix, so was switched to Bumex No significant change so far. VTE Prophylaxis: mech measures (anemia, thrombocytopenia) Disposition: home today or tomorrow, may need home oxygen Additional Comments: Suspect pt with some acute respiratory failure with CAP, combined with chronic conditions - COPD/emphysema, and restriction from abdominal changes due to cirrhosis. 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
[2016-04-16 12:15] VITALS: BP 85/58
[2016-04-16] MEDS ORDERED: PUMP TUBING ONE (12:20)
[2016-04-16] MEDS ORDERED: SODIUM CHLORIDE 0.9% 50 ML IV ONE (12:20)
[2016-04-16] MEDS: GABAPENTIN 600 MG TABLET PO SCH ×2 (12:26→13:46)
--- NOTE | 2016-04-16 14:25 | DS ---
NICHOLAS BLAND [id number] DATE OF ADMISSION: April 13, 2016 DATE OF DISCHARGE: April 16, 2016 DISCHARGE DIAGNOSES: Are: 1. Urinary tract infection with Klebsiella pneumoniae. 2. Suspected community acquired pneumonia, presumed bacterial, organism not identified. 3. Weakness, acute on chronic, attributed to acute illness. 4. Altered mental status, suspect low-grade chronic hepatic encephalopathy. 5. Alcoholic cirrhosis with ongoing alcohol use reported. 6. History suggestive of esophageal varices and ascites. 7. Thrombocytopenia attributed to cirrhosis. 8. Iron deficiency anemia with normal folate and B12 levels. 9. Chronic pain both back and bilateral shoulders. 10. Chronic low blood pressure. 11. History of frequent falls with signs of bruising on face noted. 12. History of breast cancer. 13. Rheumatoid arthritis. 14. Osteoporosis. 15. Severe osteoarthritis. REASON FOR ADMISSION: The patient is a 55-year-old female with known underlying cirrhosis who had fallen in the late evening hours of April 12, 2016. She had such weakness that her family and caregivers convinced her to come to the emergency department, and in the emergency room she evaluated and found to have an anemia with a hemoglobin of 10.4, platelets of 36, INR 1.13, lactate 0.9, sodium 136, potassium 3.8, BUN 18, creatinine 0.8, glucose 102, calcium 8.5, bilirubin 3.0, AST 75, ALT 42, alkaline phosphatase 82, ammonia 66, troponin less than 0.01. Urinalysis had 8 mg/dL of urobilinogen, trace leukocyte esterase, 0 to 1 white cells, 1 to 2 epithelial cells, 1+ bacteria. Urine drug screen was negative. Ethyl alcohol level was 0. Patient had a brain CT showing extensive pansinus disease but no findings of acute intracranial hemorrhage and a prominent left frontal parietal scalp hematoma. A chest x-ray showed multiple adjacent mid thoracic compression deformities with at least three adjacent vertebroplasties with a resultant kyphotic deformity, multiple left posterior lateral adjacent rib fractures unknown chronicity. No effusion or pneumothorax. Extensive post surgical changes of the proximal left humerus and the lower thoracic/upper lumbar spine. A shoulder x-ray showed severe osteoarthritis in the right glenohumeral joint. Incidental findings with rib fractures, surgical clips compatible with treatment for breast cancer and old thoracic vertebral compression fractures, treated with vertebroplasty. Chest x-ray suggested a mild infiltrate in the right lung with evidence of multiple previous surgeries. HOSPITAL COURSE: The patient was referred to the hospitalist service and was placed on Rocephin and azithromycin for suspected bacterial community acquired pneumonia. Also urine culture returned with Klebsiella which was susceptible to Rocephin. She had her medications for hepatic encephalopathy continued with rifaximin and lactulose, and tried to minimize sedating medications. She received oxygen supplementation but by April 16, 2016, she was able to tolerate activity with only mild desaturation and rapid recovery. She continued with her low blood pressures and had systolics as low as 78, but this was felt to be due to her cirrhosis and diuretic use rather than sepsis. By April 16, 2016, she was eager for discharge. She worked with occupational therapy and walked relatively well. She had a plan with her caregiver, neighbors, and family to follow up and is anticipated to be discharged to home. DISCHARGE MEDICATIONS: Will be: 1. Orencia 125 mg subcutaneous every seven days. 2. Bumetanide 1.5 mg orally daily. This was switched with the hope that this might be less likely to affect her platelets compared to furosemide. 3. Zubsolv 5.7 and 1.4 mg tablets one sublingually four times daily. 4. Cefuroxime 500 mg orally twice daily times seven more days. 5. Ferrous sulfate 325 mg orally twice daily. She also received Venofer 200 mg IV times one while she was here. 6. Gabapentin 600 mg orally four times daily although it is requested she follow up with her physician about if this dose should be reduced as it could be contributing to her falls. 7. Viscous lidocaine as needed. 8. Magnesium oxide 800 mg orally twice daily. 9. Multivitamin one orally daily. 10. Omeprazole 20 mg daily. 11. Zofran 4 mg orally every 12 hours as needed. 12. Potassium chloride 20 mEq. 13. Propranolol LA 60 mg orally at bedtime. 14. Rifaximin 550 mg orally twice daily. 15. Sertraline 150 mg orally daily. 16. Spironolactone 200 mg daily although it is advised that she should initially go to 100 mg a day due to her lower blood pressures. 17. Trazodone 100 mg orally at bedtime. 18. She is asked to stop the Robaxin which could contribute to her falls at this time. 19. She will be going home off supplemental oxygen. 20. Patient is asked to stop the indomethacin which could be a risk factor for bleeding with her varices. FOLLOW UP: We will ask her to follow up with Dr. Dowling in the next week to ten days. RECOMMENDATIONS: She is strongly advised to avoid alcohol as well. Cc: Lexi Dowling M.D.
[2016-04-16] MEDS ORDERED: CEFUROXIME AXETIL 500 MG TABLET PO SCH (21:00)
== END 2016-04-16 16:14 | disposition home or self-care (01) | DRG 194 ==
LOC: ED 23:16 → INTOOBSV 04-13 02:51 → MS 04-13 02:51 → OBSVTOIN 04-13 03:17
PROVIDERS: ADMIT Family Medicine; ATTEND Family Medicine
DX: J15.9 Unspecified bacterial pneumonia (principal); N39.0 Urinary tract infection, site not specified; R09.02 Hypoxemia; S00.03XA Contusion of scalp, initial encounter; W19.XXXA Unspecified fall, initial encounter; B96.1 Klebsiella pneumoniae [K. pneumoniae] as the cause of diseases classified elsewhere; K70.30 Alcoholic cirrhosis of liver without ascites; M06.9 Rheumatoid arthritis, unspecified; M81.0 Age-related osteoporosis without current pathological fracture; F32.9 Major depressive disorder, single episode, unspecified; D69.6 Thrombocytopenia, unspecified; D53.9 Nutritional anemia, unspecified; E87.6 Hypokalemia; E83.42 Hypomagnesemia; K72.90 Hepatic failure, unspecified without coma; F10.20 Alcohol dependence, uncomplicated; D50.8 Other iron deficiency anemias; M54.9 Dorsalgia, unspecified; M25.519 Pain in unspecified shoulder; R03.1 Nonspecific low blood-pressure reading; Z91.81 History of falling